=== PATIENT | female | born 1995 | race African-American/Black ===

== ENCOUNTER 2021-10-22 07:54 | Inpatient (IN) | payer OTHER ==
[~2021-10-22] VITALS: Ht 175.3 cm; Wt 102.7 kg
[2021-10-22] MEDS ORDERED: FERR325T3 PO (08:28)
[2021-10-22] MEDS ORDERED: PRENTAB9 PO (08:28)
[2021-10-26] MEDS ORDERED: COLA100C5 PO (05:59)
[2021-10-26] MEDS ORDERED: PRENCHW PO (05:59)
[2021-10-26] MEDS ORDERED: IBUP80TA PO (05:59)
[2021-10-26 06:00] VITALS: BP 136/71
== END 2021-10-26 12:45 | disposition home or self-care (01) | DRG 807 ==
LOC: M LDI 07:54 → M OBS 10-24 04:18
PROVIDERS: ADMIT Registered Nurse; ATTEND Registered Nurse
PROC: 3E0P7GC Introduction of Other Therapeutic Substance into Female Reproductive, Via Natural or Artificial Opening (ICD-10-PCS; 2021-10-22)
PROC: 10E0XZZ Delivery of Products of Conception, External Approach (ICD-10-PCS; principal; 2021-10-24)
PROC: 0HQ9XZZ Repair Perineum Skin, External Approach (ICD-10-PCS; 2021-10-24)
DX: O36.5930 Maternal care for other known or suspected poor fetal growth, third trimester, not applicable or unspecified (principal); Z37.0 Single live birth; Z3A.38 38 weeks gestation of pregnancy; O76 Abnormality in fetal heart rate and rhythm complicating labor and delivery; O64.5XX0 Obstructed labor due to compound presentation, not applicable or unspecified; O70.0 First degree perineal laceration during delivery